=== PATIENT | male | born 2000 | race Caucasian/White ===

== ENCOUNTER 2019-07-29 09:31 | Emergency (ER) | payer SELFPAY ==
[2019-07-29 09:35] VITALS: BP 122/78; PULSE 114; RESP 18; TEMP 36.8; O2SAT 95; BMI 32.3
--- NOTE | 2019-07-29 11:28 | PC.NURSE ---
Pt states he was fine up until midnight when he ate some ice cream and developed diarrhea which then turned into Nausea and vomiting.
[2019-07-29 11:32] LABS: Add Urine Microscopic? NO
--- NOTE | 2019-07-29 11:33 | W.ED.NAVMDI ---
HPI - Nausea/Vomiting/Diarrhea General: Chief complaint: Abdominal Pain Stated complaint: puking chills Time Seen by Provider: 07/29/19 11:07 Source: patient and family Mode of arrival: ambulatory Limitations: no limitations History of Present Illness: HPI Narrative: Patient is a 19-year-old male who presents to ED today with complaints of diarrhea that began around midnight; patient states he has had 7-10 episodes of nonbloody diarrhea; he states around 3 AM he began having nausea and vomiting and has vomited once since onset again nonbloody; he complains of mild diffuse abdominal cramping and body aches; mother in the room states sibling and herself have both been sick with similar symptoms MD elicited complaint: nausea, vomiting, diarrhea and abdominal pain Onset (ago): hour(s) Description of diarrhea: watery Associated nausea: Yes Associated abdominal pain: Yes Location of pain: Diffuse Pain consistency: intermittent Quality: cramping Exacerbating factors: none Relieving factors: none Context: sick contacts Associated symtoms: Reports nausea; Denies change in vision, chest pain, dysuria, fecal incontinence, palpitations or syncope Review of Systems Const: Reports: body aches; Denies: fever or chills Eyes: Denies: change in vision or blurry vision Card: Denies: chest pain, palpitations, irregular heart rhythm, lightheadedness, syncope or shortness of breath on exertion Resp: Denies: shortness of breath, productive cough or pain on inspiration GI: Reports: abdominal pain, nausea, vomiting and diarrhea; Denies: vomiting blood, fecal incontinence, painful bowel movements or rectal pain : Denies: difficulty urinating or painful urination Musc: Denies: neck pain, back pain or joint pain Skin/Breast: Denies: rash PFSH ED PFSH: Statuses (acute, chronic, etc) shown below reflect problem list status as previously entered and may not be historically accurate Social History Smoking and tobacco status: never smoked Physical Exam Const: COMMON NORMALS: no apparent distress, oriented x3, alert and well nourished HENMT: COMMON NORMALS: normocephalic and head/scalp atraumatic HEAD & SCALP: normocephalic and atraumatic Eye: COMMON NORMALS: PERRL and EOMs intact bilaterally PUPIL: Yes PERRL Neck/C-Spine: COMMON NORMALS: full ROM, no lymphadenopathy, supple and no meningeal signs Chest: COMMONS NORMALS: inspection of chest normal Resp: COMMON NORMALS: normal respiratory effort and clear to auscultation bilaterally AUSCULTATION: clear to auscultation bilaterally Cardio: COMMON NORMALS: regular rate and regular rhythm RATE: regular rate RHYTHM: regular rhythm GI: COMMON NORMALS: normal to inspection, nondistended, normoactive bowel sounds, soft to palpation, no hepatosplenomegaly and no masses PALPATION: Yes soft, Yes tender (mild diffuse-non surgical ) and Yes no hepatosplenomegaly : COMMON NORMALS: Yes no CVA tenderness BLADDER/KIDNEY EXAM: Yes no CVA tenderness Back/Pelvis: COMMON NORMALS: no CVA tenderness and thoracic and lumbar spine normal to inspection Extremity: COMMON NORMALS: normal to inspection Neuro: COMMON NORMALS: oriented x3 SENSORIUM/ORIENTATION: Yes alert MENINGEAL SIGNS: Yes no meningeal signs Skin: COMMON NORMALS: no rashes or lesions noted GENERAL SKIN EXAM: no rashes or lesions noted Course Vital Signs: Vital signs: Vital Signs Temperature 98.3 F 07/29/19 09:35 Pulse Rate 78 07/29/19 14:14 Respiratory Rate 18 07/29/19 14:14 Blood Pressure 142/74 07/29/19 14:14 Pulse Oximetry 96 07/29/19 14:14 MDM - Nausea/Vomiting/Diarrhea MDM Narrative: Medical decision making narrative: no vomiting or diarrhea while in ED; labs are non-concerning; flu neg; most likely viral illness given two other individuals in the household have had similar symptoms Lab Data: Labs: Lab Results 07/29/19 07/29/19 07/29/19 Range/Units 11:12 11:30 11:30 WBC 12.2 (4.5-13.0) 10^3/ uL RBC 5.65 H (4.1-5.3) 10^6/u L Hgb 16.3 (11.7-16.6) g/dL Hct 48.4 (42.0-52.0) % MCV 85.7 (80-94) fL MCH 28.8 (28.0-34.0) pg MCHC 33.7 (30.0-36.0) g/dL RDW 12.4 (12.1-15.1) % Plt Count 299 (130-400) 10^3/c mm MPV 9.7 (7.4-10.4) fL Neut % (Auto) 85.3 % Lymph % (Auto) 8.9 % [place] % (Auto) 4.7 % Eos % (Auto) 0.5 % Baso % (Auto) 0.3 % Neut # (Auto) 10.4 H (1.8-8.0) 10^3/u L Lymph # (Auto) 1.1 L (1.5-6.5) 10^3/u L [place] # (Auto) 0.6 (0.2-0.9) 10^3/u L Eos # (Auto) 0.1 (0.0-0.8) 10^3/u L Baso # (Auto) 0.0 (0.0-0.1) 10^3/u L Nucleated RBC % (a uto) 0 % Nucleated RBCs # 0.0 /100WBC Sodium 138 (136-145) mmol/L Potassium 4.0 (3.5-5.1) mmol/L Chloride 98 (98-107) mmol/L Carbon Dioxide 26 (22-29) mmol/L Anion Gap 18.0 (5-19) BUN 14 (6-20) mg/dL Creatinine 1.2 (0.7-1.2) mg/dL GFR Calculation 77.2 L (90-130) mL/min Glucose 126 H (74-109) mg/dL Calcium 10.0 (8.6-10.0) mg/Dl Total Bilirubin 1.0 (0.15-1.2) mg/dL AST 17 (0-40) U/L ALT 14 (0-41) U/L Alkaline Phosphata se 114 (40-130) IU/L Total Protein 7.8 (6.6-8.7) g/dL Albumin 5.1 (3.5-5.2) g/dL Globulin 2.7 (1.3-4.6) g/dL Lipase 8 L (13-60) U/L Urine Color Yellow (Yellow) Urine Appearance Clear (CLEAR) Urine pH 6.0 (5-7) Ur Specific Gravit y 1.020 (1.005-1.030) Urine Protein Neg (Negative) Urine Glucose (UA) Norm (Normal) Urine Ketones Negative (Negative) Urine Occult Blood Neg (Negative) Urine Nitrate Negative (Negative) Urine Bilirubin 1+ H (NEGATIVE) Urine Urobilinogen Norm (Negative) mg/dL Ur Leukocyte Marlen ase Negative (Negative) Influenza Type A A g (Negative) POC Influenza B Ag (Negative) 07/29/19 Range/Units 11:30 WBC (4.5-13.0) 10^3/ uL RBC (4.1-5.3) 10^6/u L Hgb (11.7-16.6) g/dL Hct (42.0-52.0) % MCV (80-94) fL MCH (28.0-34.0) pg MCHC (30.0-36.0) g/dL RDW (12.1-15.1) % Plt Count (130-400) 10^3/c mm MPV (7.4-10.4) fL Neut % (Auto) % Lymph % (Auto) % [place] % (Auto) % Eos % (Auto) % Baso % (Auto) % Neut # (Auto) (1.8-8.0) 10^3/u L Lymph # (Auto) (1.5-6.5) 10^3/u L [place] # (Auto) (0.2-0.9) 10^3/u L Eos # (Auto) (0.0-0.8) 10^3/u L Baso # (Auto) (0.0-0.1) 10^3/u L Nucleated RBC % (a uto) % Nucleated RBCs # /100WBC Sodium (136-145) mmol/L Potassium (3.5-5.1) mmol/L Chloride (98-107) mmol/L Carbon Dioxide (22-29) mmol/L Anion Gap (5-19) BUN (6-20) mg/dL Creatinine (0.7-1.2) mg/dL GFR Calculation (90-130) mL/min Glucose (74-109) mg/dL Calcium (8.6-10.0) mg/Dl Total Bilirubin (0.15-1.2) mg/dL AST (0-40) U/L ALT (0-41) U/L Alkaline Phosphata se (40-130) IU/L Total Protein (6.6-8.7) g/dL Albumin (3.5-5.2) g/dL Globulin (1.3-4.6) g/dL Lipase (13-60) U/L Urine Color (Yellow) Urine Appearance (CLEAR) Urine pH (5-7) Ur Specific Gravit y (1.005-1.030) Urine Protein (Negative) Urine Glucose (UA) (Normal) Urine Ketones (Negative) Urine Occult Blood (Negative) Urine Nitrate (Negative) Urine Bilirubin (NEGATIVE) Urine Urobilinogen (Negative) mg/dL Ur Leukocyte Marlen ase (Negative) Influenza Type A A g Negative (Negative) POC Influenza B Ag Negative (Negative) Discharge Plan Discharge Patient Disposition: Home, Self-Care Clinical Impression: Gastroenteritis Condition: Stable Prescriptions: New Zofran 4 mg tablet 4 mg PO Q8H PRN (Reason: nausea and vomiting) 5 Days Qty: 15 RF: 0 Discharge Orders: Discharge Order (Routine); Ordered 07/29/19 Ordered By: Lyla Rondon Referrals: Jonathan Ron DO [Family Provider] - Discharge Date/Time: 07/29/19 14:15 Coding Level of Care Code ED Mental Health Social Worker for Chg Fwd Exam Problem Focused
[2019-07-29 11:46] LABS: Basophils % 0.3 %; Eosinophils # 0.1 10^3/uL (0.0-0.8); Eosinophils % 0.5 %; Hematocrit 48.4 % (42.0-52.0); Hemoglobin 16.3 g/dL (11.7-16.6); Lymphocytes # 1.1 10^3/uL (1.5-6.5); Lymphocytes % 8.9 %; Mean Corpuscular HGB Conc 33.7 g/dL (30.0-36.0); Mean Corpuscular Hemoglobin 28.8 pg (28.0-34.0); Mean Corpuscular Volume 85.7 fL (80-94); Mean Platelet Volume 9.7 fL (7.4-10.4); Monocytes # 0.6 10^3/uL (0.2-0.9); Monocytes % 4.7 %; Neutrophils # 10.4 10^3/uL (1.8-8.0); Neutrophils % 85.3 %; Nucleated Red Blood Cells % 0 %; Platelet Count 299 10^3/cmm (130-400); Red Blood Count 5.65 10^6/uL (4.1-5.3); Red Cell Distribution Width 12.4 % (12.1-15.1); White Blood Count 12.2 10^3/uL (4.5-13.0)
[2019-07-29 11:47] LABS: Bilirubin Urine 1+ (NEGATIVE); Blood Urine Neg (Negative); Glucose Urine UA Norm (Normal); Ketones Urine Negative (Negative); Leukocyte Esterase Urine Negative (Negative); Nitrate Urine Negative (Negative); Protein Urine Neg (Negative); Urine Appearance Clear (CLEAR); Urine Color Yellow (Yellow); Urobilinogen Urine Norm (Negative)
[2019-07-29 12:05] LABS: Alanine Aminotransferase 14 U/L (0-41); Albumin Level 5.1 g/dL (3.5-5.2); Alkaline Phosphatase 114 IU/L (40-130); Aspartate Amino Transferase 17 U/L (0-40); Blood Urea Nitrogen 14 mg/dL (6-20); Carbon Dioxide 26 mmol/L (22-29); Chloride 98 mmol/L (98-107); Globulin 2.7 g/dL (1.3-4.6); Glomerular Filtration Rate 77.2 mL/min (90-130); Glucose 126 mg/dL (74-109); Lipase 8 U/L (13-60); Sodium 138 mmol/L (136-145); Total Protein 7.8 g/dL (6.6-8.7)
[2019-07-29 12:41] LABS: Influenza A by IFA Negative (Negative); Influenza B by IFA Negative (Negative)
[2019-07-29 14:14] VITALS: BP 142/74; PULSE 78; RESP 18; O2SAT 96
== END 2019-07-29 14:15 | disposition home or self-care (01) ==
PROVIDERS: Physician Assistant; Emergency Provider Emergency Medicine; Family Provider Family Medicine
DX: K52.9 Noninfective gastroenteritis and colitis, unspecified (principal)
CPT/HCPCS: 80053; 81003; 83690; 85025; 87804; 99282; 99283; A9270

== ENCOUNTER 2020-12-06 14:52 | Emergency (ER) | payer BC, SELFPAY ==
[2020-12-06 15:16] VITALS: BP 139/86; PULSE 89; RESP 18; TEMP 36.8; O2SAT 97; BMI 30.7
[2020-12-06 16:19] VITALS: BP 139/88; PULSE 85; RESP 18; O2SAT 98
--- NOTE | 2020-12-06 16:24 | ED_ITS ---
Documented by User: TANNER Vallecillo 12/13/20 17:21 HPI - Abdominal Pain General: Chief Complaint: Abdominal Pain Stated Complaint: sore throat,SOB,Stomach pains Time Seen by Provider: 12/06/20 16:23 History of Present Illness: HPI narrative: Patient comes in for some abdominal discomfort with diarrhea. Patient reports symptoms started about 3 days ago. Patient reports that for the last 3 days has had diarrhea and has recently today started having some changes in his taste. Patient has not tested positive for Covid. Patient has not had his Covid vaccine. Patient appears well. Patient reports that his diarrhea has went from watery and now has some consistency in the. Patient denies any vomiting. Patient reports upper abdominal discomfort. Patient denies seeing blood in the stool. Patient has not had any significant fever. Patient has no chronic medical problems or take any routine medication. MD elicited complaint: abdominal pain Pertinent past history: none Onset (ago): day(s) Pain Consistency: colicky Location: Diffuse (mild) Quality: cramping Radiation: none Migration to: no migration Exacerbating factors: nothing Relieving factors: bowel movement Context: sick contacts Associated Symptoms: Reports diarrhea and other (Abnormal taste) Review of Systems General: Reports: 10 or more systems reviewed and unremarkable except in HPI and below GI: Reports: diarrhea and other (Abnormal taste) PFSH ED PFSH: Social History Smoking and tobacco status: never smoked Physical Exam Const: COMMON NORMALS: no acute distress and patient oriented x3 GENERAL APPEARANCE: cooperative HENMT: COMMON NORMALS: normocephalic, TM's normal bilaterally and Normal external nose present HEAD & SCALP: normal to inspection and normocephalic NOSE: Normal external nose present TYMPANIC MEMBRANE: TM's normal bilaterally MOUTH: Normal oral and palatal mucosa present THROAT: posterior oropharynx normal Eye: GENERAL EYE: appearance normal, both eyes and all related structures Neck/C-Spine: COMMON NORMALS: full ROM Lymph: LYMPHATIC: no lymphadenopathy noted Chest: COMMONS NORMALS: normal inspection of the chest Resp: COMMON NORMALS: normal respiratory effort EFFORT & INSPECTION: Yes able to speak in complete sentences Cardio: COMMON NORMALS: regular rate and regular rhythm RATE: regular rate RHYTHM: regular rhythm GI: COMMON NORMALS: Soft to palpation AUSCULTATION: Yes normoactive bowel sounds PALPATION: Yes Soft to palpation, Yes Tenderness to palpation present (GI) (Mild, epigastric), No Guarding due to palpation present (GI) and No R ebound tenderness present : COMMON NORMALS: Yes no CVA tenderness BLADDER/KIDNEY EXAM: Yes no CVA tenderness Back/Pelvis: COMMON NORMALS: no CVA tenderness and thoracic and lumbar spine normal to inspection Extremity: COMMON NORMALS: normal to inspection Neuro: COMMON NORMALS: patient oriented x3 and moves all extremities Psych: COMMON NORMALS: mental status grossly normal and cooperative Skin: COMMON NORMALS: no rashes or lesions noted GENERAL SKIN EXAM: no rashes or lesions noted Course Vital Signs: Vital signs: Vital Signs Temperature 98.3 F 12/06/20 15:16 Pulse Rate 69 12/06/20 18:39 Respiratory Rate 20 H 12/06/20 18:39 Blood Pressure 135/72 12/06/20 18:39 Pulse Oximetry 98 12/06/20 18:39 MDM - Abdominal Pain Lab Data: Labs: Lab Results 12/06/20 12/06/20 12/06/20 Range/Units 16:42 16:42 16:42 WBC 8.8 (4.0-10.0) 10^3/ uL RBC 5.40 H (4.1-5.3) 10^6/u L Hgb 15.9 (11.7-16.6) g/dL Hct 47.4 (42.0-52.0) % MCV 87.8 (80-94) fL MCH 29.4 (28.0-34.0) pg MCHC 33.5 (30.0-36.0) g/dL RDW 12.7 (12.1-15.1) % Plt Count 267 (130-400) 10^3/c mm MPV 9.7 (7.4-10.4) fL Neut % (Auto) 61.6 % Lymph % (Auto) 30.5 % [place] % (Auto) 6.1 % Eos % (Auto) 1.0 % Baso % (Auto) 0.6 % Neut # (Auto) 5.44 (1.8-7.7) 10^3/u L Lymph # (Auto) 2.7 (0.8-4.8) 10^3/u L [place] # (Auto) 0.5 (0.2-0.9) 10^3/u L Eos # (Auto) 0.1 (0.0-0.8) 10^3/u L Baso # (Auto) 0.1 (0.0-0.1) 10^3/u L Nucleated RBC % (a uto) 0 % Nucleated RBCs # 0.0 /100WBC Sodium 140 (136-145) mmol/L Potassium 3.9 (3.5-5.1) mmol/L Chloride 103 (98-107) mmol/L Carbon Dioxide 27 (22-29) mmol/L Anion Gap 13.9 (5-19) BUN 17 (6-20) mg/dL Creatinine 1.0 (0.7-1.2) mg/dL GFR Calculation 94.3 (90-130) mL/min Glucose 89 (65-115) mg/dL Calculated Osmolal ity 291 (285-295) mOsm/k g Calcium 8.9 (8.5-10.5) mg/dL Total Bilirubin 0.4 (0.15-1.2) mg/dL AST 16 (0-40) U/L ALT 15 (0-41) U/L Alkaline Phosphata se 75 (40-130) IU/L Total Protein 7.2 (6.6-8.7) g/dL Albumin 4.6 (3.5-5.2) g/dL Globulin 2.6 (1.3-4.6) g/dL SARS-CoV-2 Ag (Rap id) Negative (Negative) Discharge Plan Discharge Patient Disposition: Home Clinical Impression: Viral syndrome Condition: Stable Prescriptions: No Action No Known Home Medications RF: 0 Discharge Orders: Discharge ED (Routine); Ordered 12/06/20 Ordered By: Bryan Mendez Discharge Diet: Regular Discharge Activity: Resume usual activity Patient Instructions: Viral Syndrome (ED) Activity Restrictions/Additional Instructions: Follow-up with medical provider as directed in 7 to 10 days for reevaluation. Drink plenty fluids and stay hydrated. Take [id number]-[id number] Tylenol or Motrin for any fever pain. Return to the ER or your medical provider if condition worsens. Please read and understand discharge instructions. Thank you for choosing [facility] for your healthcare needs today. Please realize this is an emergency room and that we are providing you with a medical screening exam and this may not be complete and all inclusive of all the testing and or work up that you may need to determine your ailment or severity of your illness. It is very important that you follow up as instructed or that you return to the Emergency Department should you have concerns or if your condition changes or worsens in any way. Stand Alone Forms: Work/School Release Sign Out Sign Out Data: Patient Sign Out occurred on 12/06/20 at 17:08. Patient's care was discussed, and care was transferred from Guillaume Harding to BRIA Bhatti. Sign Out Comment: Patient is here for diarrhea and abdominal discomfort. Patient appears mildly unwell. Patient reports diarrhea stools that started off watery but now are loose. Patient has had no significant fever. Patient has sick contacts at work. We are awaiting labs and COVID-19 testing. Last updated by Guillaume Harding FNP at 12/06/20 16:47 Coding Level of Care Code ED Ophthalmic Medical Assistant for Chg Fwd Exam Comprehensive Documented by User: BRIA Bhatti 12/07/20 04:59 HPI - Abdominal Pain General: Chief Complaint: Abdominal Pain Stated Complaint: sore throat,SOB,Stomach pains Time Seen by Provider: 12/06/20 16:23 PENDING SALE TO [facility] ED PFSH: Social History Smoking and tobacco status: never smoked Course Vital Signs: Vital signs: Vital Signs Temperature 98.3 F 12/06/20 15:16 Pulse Rate 69 12/06/20 18:39 Respiratory Rate 20 H 12/06/20 18:39 Blood Pressure 135/72 12/06/20 18:39 Pulse Oximetry 98 12/06/20 18:39 MDM - Abdominal Pain MDM Narrative: Medical decision making narrative: I took over patient case at 5 PM from jon Harding nurse practitioner. Meaghan performed the history, physical exam and lab work-up orders. When he transferred care over to me he was waiting on lab report findings. I agree with Harding exam findings and patient appears nontoxic and in no acute distress. Patient is a 20-year-old male comes to the ED with diarrhea and was worried that he might have Covid. CBC and CMP were unremarkable. Covid antigen test was negative. I offered patient a nausea med to discharge home with and he refused it. Patient was diagnosed with a viral syndrome and discharged home. He was told to take [id number] ibuprofen or Tylenol for any fever pain. Drink plenty of fluids and stay hydrated. Follow-up with his PCP in 7 to 10 days for reevaluation. Return to ED precautions given. Patient understood agree with plan. Lab Data: Attestation: I reviewed the patient's lab results. Labs: Lab Results 12/06/20 12/06/20 12/06/20 Range/Units 16:42 16:42 16:42 WBC 8.8 (4.0-10.0) 10^3/ uL RBC 5.40 H (4.1-5.3) 10^6/u L Hgb 15.9 (11.7-16.6) g/dL Hct 47.4 (42.0-52.0) % MCV 87.8 (80-94) fL MCH 29.4 (28.0-34.0) pg MCHC 33.5 (30.0-36.0) g/dL RDW 12.7 (12.1-15.1) % Plt Count 267 (130-400) 10^3/c mm MPV 9.7 (7.4-10.4) fL Neut % (Auto) 61.6 % Lymph % (Auto) 30.5 % [place] % (Auto) 6.1 % Eos % (Auto) 1.0 % Baso % (Auto) 0.6 % Neut # (Auto) 5.44 (1.8-7.7) 10^3/u L Lymph # (Auto) 2.7 (0.8-4.8) 10^3/u L [place] # (Auto) 0.5 (0.2-0.9) 10^3/u L Eos # (Auto) 0.1 (0.0-0.8) 10^3/u L Baso # (Auto) 0.1 (0.0-0.1) 10^3/u L Nucleated RBC % (a uto) 0 % Nucleated RBCs # 0.0 /100WBC Sodium 140 (136-145) mmol/L Potassium 3.9 (3.5-5.1) mmol/L Chloride 103 (98-107) mmol/L Carbon Dioxide 27 (22-29) mmol/L Anion Gap 13.9 (5-19) BUN 17 (6-20) mg/dL Creatinine 1.0 (0.7-1.2) mg/dL GFR Calculation 94.3 (90-130) mL/min Glucose 89 (65-115) mg/dL Calculated Osmolal ity 291 (285-295) mOsm/k g Calcium 8.9 (8.5-10.5) mg/dL Total Bilirubin 0.4 (0.15-1.2) mg/dL AST 16 (0-40) U/L ALT 15 (0-41) U/L Alkaline Phosphata se 75 (40-130) IU/L Total Protein 7.2 (6.6-8.7) g/dL Albumin 4.6 (3.5-5.2) g/dL Globulin 2.6 (1.3-4.6) g/dL SARS-CoV-2 Ag (Rap id) Negative (Negative) Discharge Plan Discharge Patient Disposition: Home Clinical Impression: Viral syndrome Condition: Stable Prescriptions: No Action No Known Home Medications RF: 0 Discharge Orders: Discharge ED (Routine); Ordered 12/06/20 Ordered By: Bryan Mendez Discharge Diet: Regular Discharge Activity: Resume usual activity Patient Instructions: Viral Syndrome (ED) Activity Restrictions/Additional Instructions: Follow-up with medical provider as directed in 7 to 10 days for reevaluation. Drink plenty fluids and stay hydrated. Take [id number] Tylenol or Motrin for any fever pain. Return to the ER or your medical provider if condition worsens. Please read and understand discharge instructions. Thank you for choosing [facility] for your healthcare needs today. Please realize this is an emergency room and that we are providing you with a medical screening exam and this may not be complete and all inclusive of all the testing and or work up that you may need to determine your ailment or severity of your illness. It is very important that you follow up as instructed or that you return to the Emergency Department should you have concerns or if your condition changes or worsens in any way. Stand Alone Forms: Work/School Release Sign Out Sign Out Data: Patient Sign Out occurred on 12/06/20 at 17:08. Patient's care was discussed, and care was transferred from Guillaume Harding to BRIA Bhatti. Sign Out Comment: Patient is here for diarrhea and abdominal discomfort. Patient appears mildly unwell. Patient reports diarrhea stools that started off watery but now are loose. Patient has had no significant fever. Patient has sick contacts at work. We are awaiting labs and COVID-19 testing. Last updated by Guillaume Harding FNP at 12/06/20 16:47 Coding Level of Care Code ED Ophthalmic Medical Assistant for Chg Fwd Exam Comprehensive
[2020-12-06 16:30] VITALS: BP 139/88; PULSE 85; RESP 18; O2SAT 96
[2020-12-06 16:47] VITALS: BP 139/88; PULSE 85; RESP 18; O2SAT 97
[2020-12-06 16:57] LABS: Basophils # 0.1 10^3/uL (0.0-0.1); Basophils % 0.6 %; Eosinophils # 0.1 10^3/uL (0.0-0.8); Hematocrit 47.4 % (42.0-52.0); Hemoglobin 15.9 g/dL (11.7-16.6); Lymphocytes # 2.7 10^3/uL (0.8-4.8); Lymphocytes % 30.5 %; Mean Corpuscular HGB Conc 33.5 g/dL (30.0-36.0); Mean Corpuscular Hemoglobin 29.4 pg (28.0-34.0); Mean Corpuscular Volume 87.8 fL (80-94); Mean Platelet Volume 9.7 fL (7.4-10.4); Monocytes # 0.5 10^3/uL (0.2-0.9); Monocytes % 6.1 %; Neutrophils # 5.44 10^3/uL (1.8-7.7); Neutrophils % 61.6 %; Nucleated Red Blood Cells % 0 %; Platelet Count 267 10^3/cmm (130-400); Red Cell Distribution Width 12.7 % (12.1-15.1); White Blood Count 8.8 10^3/uL (4.0-10.0)
[2020-12-06 17:20] LABS: SARS Covid-2 Antigen Negative (Negative)
[2020-12-06 17:43] LABS: Alanine Aminotransferase 15 U/L (0-41); Albumin Level 4.6 g/dL (3.5-5.2); Alkaline Phosphatase 75 IU/L (40-130); Anion Gap 13.9 (5-19); Aspartate Amino Transferase 16 U/L (0-40); Blood Urea Nitrogen 17 mg/dL (6-20); Calcium 8.9 mg/dL (8.5-10.5); Carbon Dioxide 27 mmol/L (22-29); Chloride 103 mmol/L (98-107); Globulin 2.6 g/dL (1.3-4.6); Glomerular Filtration Rate 94.3 mL/min (90-130); Glucose 89 mg/dL (65-115); Osmolality Calculated 291 mOsm/kg (285-295); Potassium 3.9 mmol/L (3.5-5.1); Sodium 140 mmol/L (136-145); Total Bilirubin 0.4 mg/dL (0.15-1.2); Total Protein 7.2 g/dL (6.6-8.7)
[2020-12-06 18:39] VITALS: BP 135/72; PULSE 69; RESP 20; O2SAT 98
== END 2020-12-06 18:41 | disposition home or self-care (01) ==
PROVIDERS: Nurse Practitioner Family; Emergency Provider Physician Assistant
DX: B34.9 Viral infection, unspecified (principal)
CPT/HCPCS: 80053; 85025; 87426; 99282

== ENCOUNTER → 2021-02-19 17:02 | Outpatient (BNVA) | payer BC, SELFPAY | PROVIDERS: Visit Provider Registered Nurse Neonatal Intensive Care | DX: Z20.822 Contact with and (suspected) exposure to COVID-19 (principal) | CPT/HCPCS: 87635 ==

== ENCOUNTER → 2021-02-24 11:38 | Outpatient (BNVA) | payer BC, SELFPAY | PROVIDERS: Visit Provider Nurse Practitioner Family | DX: Z20.822 Contact with and (suspected) exposure to COVID-19 (principal) | CPT/HCPCS: 87635 ==

== ENCOUNTER 2024-11-14 04:22 | Emergency (ER) | payer SELFPAY ==
[2024-11-14 04:35] VITALS: BP 137/98; PULSE 90; RESP 18; TEMP 37.1; O2SAT 95; BMI 32.3
[2024-11-14 04:53] LABS: Basophils # 0.1 10^3/uL (0.0-0.1); Basophils % 0.5 %; Eosinophils # 0.1 10^3/uL (0.0-0.8); Eosinophils % 1.2 %; Hematocrit 44.6 % (37-53); Lymphocytes # 1.6 10^3/uL (0.8-4.8); Lymphocytes % 17.1 %; Mean Corpuscular Hemoglobin 29.6 pg (27-33); Mean Corpuscular Volume 89.9 fl (82-101); Mean Platelet Volume 9.6 fL (7.4-10.4); Monocytes # 0.5 10^3/uL (0.2-0.9); Monocytes % 4.9 %; Neutrophils # 7.09 10^3/uL (1.8-7.7); Nucleated Red Blood Cells % 0 %; Platelet Count 243 10^3/cmm (157-399); Red Blood Count 4.96 10^6/uL (3.85-5.65); Red Cell Distribution Width 12.5 % (12.1-15.1); White Blood Count 9.34 10^3/uL (3.29-11.43)
[2024-11-14 05:14] LABS: Acetaminophen < 5.0 ug/mL (10-30); Alanine Aminotransferase 14 U/L (0-41); Albumin Level 4.4 g/dL (3.5-5.2); Alkaline Phosphatase 82 U/L (40-130); Aspartate Amino Transferase 18 U/L (0-40); Blood Urea Nitrogen 18 mg/dL (6-20); Calcium 8.7 mg/dL (8.5-10.5); Carbon Dioxide 26 mmol/L (22-29); Chloride 104 mmol/L (98-107); Creatinine Clr Calc Pharmacy 108.2731; Globulin 2.6 g/dL (1.3-4.6); Glomerular Filtration Rate 81.6 mL/min (90-130); Glucose 111 mg/dL (65-115); Osmolality Calculated 293 mOsm/kg (285-295); Salicylate < 0.3 mg/dL (3-10); Sodium 140 mmol/L (136-145); Total Bilirubin 0.3 mg/dL (0.15-1.2)
[2024-11-14 05:23] LABS: Bacteria Urine None Seen /hpf; Hyaline Casts Urine 0-4 /lpf; RBC Urine 0-2 /hpf (0-2); Squamous Epithelial Cell Urine 0-5 /hpf (0-5); WBC Urine 0-5 /hpf (0-5)
[2024-11-14 05:24] LABS: Add Urine Microscopic? YES; Bilirubin Urine Neg (Negative); Blood Urine Neg (Negative); Glucose Urine UA Norm (Normal); Ketones Urine Negative (Negative); Leukocyte Esterase Urine Negative (Negative); Nitrate Urine Negative (Negative); Protein Urine Neg (Negative); Specific Gravity, Urine 1.025 (1.005-1.030); Urine Appearance Clear (CLEAR); Urine Color Yellow (Yellow); Urobilinogen Urine Neg (Negative); pH Urine 5 (5-7)
[2024-11-14 05:27] LABS: Amphetamines Screen Urine Negative (Negative); Barbiturates Screen Urine Negative (Negative); Benzodiazepines Screen Urine Negative (Negative); Cocaine Screen Urine Negative (Negative); Opiate Screen Urine Negative (Negative); PCP Screen Urine Negative (Negative); THC Screen Urine Negative (Negative)
--- NOTE | 2024-11-14 05:27 | ECG_ITS ---
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 Measurements Intervals Burns Rate: 63 P: 48 PA: 136 QRS: 30 QRSD: 96 T: 18 QT: 386 QTc: 395 Interpretive Statements SINUS RHYTHM WITH MARKED SINUS ARRHYTHMIA Compared to ECG 04/17/2016 16:57:44 Sinus bradycardia no longer present Electronically Signed On 11-16-2024 09:21:32 CDT by Tylor Samuel M.D. [email or web address]
[2024-11-14 05:29] LABS: Alcohol Level < 10 mg/dL (0-10)
[2024-11-14 05:30] LABS: Anion Gap 13.8 (5-19); Potassium 3.8 mmol/L (3.5-5.1)
--- NOTE | 2024-11-14 05:37 | ED.C_ITS ---
HPI - Psych 2 General: Chief Complaint: Psychiatric Symptoms Stated Complaint: SI Time Seen by Provider: 11/14/24 04:36 History of Present Illness: Patient presents to the Emergency Department with acute suicidal ideation. Patient reports a history of chronic suicidal thoughts since youth, with involvement of case workers during childhood. Patient denies any previous suicide attempts. Current crisis precipitated by recent personal issues and mistakes that have been weighing heavily on patient's mind. Patient reports history of mental health concerns since childhood, though appears uncertain about specific diagnoses. Mother has apparently provided information about mental health conditions in the past. Patient mentions 'CVD' but unclear about specific diagnosis. Patient has history of psychiatric hospitalization in [facility] between ages 16- 17. Currently denies being on any medications. Patient's response regarding current substance use was interrupted/unclear. Related Data Home Medications ?Medication ?Instructions ?Recorded ?Confirmed No Known Home Medications 12/06/200 09/05 Allergies Allergy/AdvReac Type Severity Reaction Status Date / Time No Known Allergies Allergy Verified 02/13/22 13:59 Review of Systems 2 General: Reports: 10 or more systems reviewed and unremarkable except in HPI and below PFSH ED 2 PFSH: Social History Smoking and tobacco/nicotine status: current every day tobacco/nicotine user (vape user) Physical Exam 2 Const: COMMON NORMALS: no acute distress, patient oriented x3, alert and well nourished HENMT: COMMON NORMALS: normocephalic HEAD & SCALP: normocephalic Eye: COMMON NORMALS: Equal, round and reactive pupils present, EOMs intact bilaterally and conjunctivae normal CONJUNCTIVA: Yes conjunctivae normal P UPIL: Yes Equal, round and reactive pupils present Neck/C-Spine: COMMON NORMALS: no JVD Resp: COMMON NORMALS: normal respiratory effort, No retractions, No use of accessory muscles, clear to auscultation bilaterally and percussion normal A USCULTATION: clear to auscultation bilaterally PERCUSSION: percussion normal Cardio: COMMON NORMALS: no JVD GI: COMMON NORMALS: Normal to inspection, nondistended, normoactive bowel sounds present, Soft to palpation, non-tender, No hepatosplenomegaly present, no masses and no bruits PALPATION: Yes Soft to palpation and Yes No hepatosplenomegaly present : COMMON NORMALS: Yes no CVA tenderness BLADDER/KIDNEY EXAM: Yes no CVA tenderness Back/Pelvis: COMMON NORMALS: no CVA tenderness Extremity: COMMON NORMALS: normal to inspection, full ROM, capillary refill normal, no joint enlargement, no clubbing, cyanosis or edema, no calf tenderness and no pedal edema Neuro: COMMON NORMALS: patient oriented x3 SENSORIUM/ORIENTATION: Yes alert Skin: COMMON NORMALS: no rashes or lesions noted, turgor normal and no jaundice GENERAL SKIN EXAM: no rashes or lesions noted and turgor normal Course 2 Vital Signs: Vital signs: Vital Signs Temperature 98.7 F 11/14/24 04:35 Pulse Rate 90 11/14/24 04:35 Respiratory Rate 18 11/14/24 04:35 Blood Pressure 137/98 11/14/24 04:35 Pulse Oximetry 95 11/14/24 04:35 MDM - Psych Medical Decision Making 1. Acute Suicidal Ideation - Patient presents with active suicidal thoughts requiring immediate psychiatric evaluation - Will obtain routine screening labs to rule out organic causes - Plan for psychiatric placement once medically cleared 2. Chronic Mental Health Issues - Long-standing history of mental health concerns since childhood - Currently not on psychiatric medications - Will need comprehensive psychiatric evaluation and medication assessment Labs returned and there is no significant abnormalities on the labs that would preclude workup and psychiatry. Twelve-lead EKG is reviewed and there is no prolongation of the QT or other arrhythmia we will begin psychiatric placement. Differential Diagnosis Likely acute psychosis, suicidal ideation and depression Lab Data 11/14/24 04:48 11/14/24 04:48 Laboratory Results WBC 9.34 10^3/uL (3.29-11.43) 11/14/24 04:48 RBC 4.96 10^6/uL (3.85-5.65) 11/14/24 04:48 Hgb 14.70 g/dL (11.27-16.99) 11/14/24 04:48 Hct 44.6 % (37-53) 11/14/24 04:48 MCV 89.9 fl (82-101) 11/14/24 04:48 MCH 29.6 pg (27-33) 11/14/24 04:48 MCHC 33.0 g/dL (30-55) 11/14/24 04:48 RDW 12.5 % (12.1-15.1) 11/14/24 04:48 Plt Count 243 10^3/cmm (157-399) 11/14/24 04:48 MPV 9.6 fL (7.4-10.4) 11/14/24 04:48 Neut % (Auto) 76.0 % 11/14/24 04:48 Lymph % (Auto) 17.1 % 11/14/24 04:48 [place] % (Auto) 4.9 % 11/14/24 04:48 Eos % (Auto) 1.2 % 11/14/24 04:48 Baso % (Auto) 0.5 % 11/14/24 04:48 Neut # (Auto) 7.09 10^3/uL (1.8-7.7) 11/14/24 04:48 Lymph # (Auto) 1.6 10^3/uL (0.8-4.8) 11/14/24 04:48 [place] # (Auto) 0.5 10^3/uL (0.2-0.9) 11/14/24 04:48 Eos # (Auto) 0.1 10^3/uL (0.0-0.8) 11/14/24 04:48 Baso # (Auto) 0.1 10^3/uL (0.0-0.1) 11/14/24 04:48 Nucleated RBC % (auto) 0 % 11/14/24 04:48 Nucleated RBCs # 0.0 /100WBC 11/14/24 04:48 Sodium 140 mmol/L (136-145) 11/14/24 04:48 Potassium 3.8 mmol/L (3.5-5.1) 11/14/24 04:48 Chloride 104 mmol/L (98-107) 11/14/24 04:48 Carbon Dioxide 26 mmol/L (22-29) 11/14/24 04:48 Anion Gap 13.8 (5-19) 11/14/24 04:48 BUN 18 mg/dL (6-20) 11/14/24 04:48 Creatinine 1.1 mg/dL (0.7-1.2) 11/14/24 04:48 GFR Calculation 81.6 mL/min (90-130) L 11/14/24 04:48 Glucose 111 mg/dL (65-115) 11/14/24 04:48 Calculated Osmolality 293 mOsm/kg (285-295) 11/14/24 04:48 Calcium 8.7 mg/dL (8.5-10.5) 11/14/24 04:48 Total Bilirubin 0.3 mg/dL (0.15-1.2) 11/14/24 04:48 AST 18 U/L (0-40) 11/14/24 04:48 ALT 14 U/L (0-41) 11/14/24 04:48 Alkaline Phosphatase 82 U/L (40-130) 11/14/24 04:48 Total Protein 7.0 g/dL (6.6-8.7) 11/14/24 04:48 Albumin 4.4 g/dL (3.5-5.2) 11/14/24 04:48 Globulin 2.6 g/dL (1.3-4.6) 11/14/24 04:48 Urine Color Yellow (Yellow) 11/14/24 04:41 Urine Appearance Clear (CLEAR) 11/14/24 04:41 Urine pH 5 (5-7) 11/14/24 04:41 Ur Specific [place] 1.025 (1.005-1.030) 11/14/24 04:41 Urine Protein Neg (Negative) 11/14/24 04:41 Urine Glucose (UA) Norm (Normal) 11/14/24 04:41 Urine Ketones Negative (Negative) 11/14/24 04:41 Urine Blood Neg (Negative) 11/14/24 04:41 Urine Nitrate Negative (Negative) 11/14/24 04:41 Urine Bilirubin Neg (Negative) 11/14/24 04:41 Urine Urobilinogen Neg mg/dL (Negative) 11/14/24 04:41 Ur Leukocyte Esterase Negative (Negative) 11/14/24 04:41 Urine RBC 0-2 /hpf (0-2) 11/14/24 04:41 Urine WBC 0-5 /hpf (0-5) 11/14/24 04:41 Ur Squamous Epith Cells 0-5 /hpf (0-5) 11/14/24 04:41 Amorphous Sediment Not Reportable 11/14/24 04:41 Urine Bacteria None seen /hpf (NONE) 11/14/24 04:41 Hyaline Casts 0-4 /lpf H 11/14/24 04:41 Salicylates < 0.3 mg/dL (3-10) L 11/14/24 04:48 Urine Opiates Screen Negative ng/mL (Negative) 11/14/24 04:41 Acetaminophen < 5.0 ug/mL (10-30) L 11/14/24 04:48 Ur Barbiturates Screen Negative ng/mL (Negative) 11/14/24 04:41 Ur Phencyclidine Scrn Negative ng/mL (Negative) 11/14/24 04:41 Ur Amphetamines Screen Negative ng/mL (Negative) 11/14/24 04:41 U Benzodiazepines Scrn Negative ng/mL (Negative) 11/14/24 04:41 Urine Cocaine Screen Negative ng/mL (Negative) 11/14/24 04:41 U Marijuana (THC) Screen Negative ng/mL (Negative) 11/14/24 04:41 Ethyl Alcohol < 10 mg/dL (0-10) 11/14/24 04:48 No radiology studies performed this visit ED provider radiology interpretation(s): note Discharge Plan Discharge Patient Disposition: Xfer Psychiatric Hosp Clinical Impression: Depression, Suicidal ideation Condition: Stable Patient Instructions: Opioid Safety, Pain Management Print Language: Kazakh Coding Level of Care Code ED Safety Tech for Fausto Rodgers
[2024-11-14 05:56] LABS: Influenza A NEGATIVE (Negative); Influenza B NEGATIVE (Negative); Respiratory Syncytial Virus Ce NEGATIVE (Negative); SARS-CoV-2 PCR NEGATIVE (Negative)
[2024-11-14 07:24] VITALS: BP 121/70; PULSE 108; O2SAT 97
[2024-11-14 11:45] VITALS: BP 125/68; PULSE 67; RESP 16; O2SAT 96
== END 2024-11-14 13:21 ==
PROVIDERS: Emergency Provider Family Medicine
DX: R45.851 Suicidal ideations (principal); F32.A Depression, unspecified; F17.290 Nicotine dependence, other tobacco product, uncomplicated
CPT/HCPCS: 36415; 80053; 80306; 80307; 81001; 85025; 87637; 93005; 99285